=== PATIENT | female | born 1985 | race Caucasian/White ===

== ENCOUNTER 2018-04-10 16:17 | Emergency (ER) | payer OTHER ==
[~2018-04-10] VITALS: Ht 162.5 cm; Wt 59.0 kg
[~2018-04-10 16:17] MED LIST: AMOXIL500 MG PO; BIRTH CONTROL1 EAC1 PO; CLARITIN-D 10 M1 T24 PO; MOTRIN800 MG PO; PERCOCET 325 MG1 TA2 PO; PRENATAL1 TA1 PO; PRENATAL1 TA2 PO; ZITHROMAX Z PA250 MG PO
[2018-04-10] MEDS ORDERED: PREDNISONE50 MG PO (17:43)
[2018-04-10] MEDS ORDERED: PROVENTIL HFA6.7 GM INH (17:43)
== END 2018-04-10 17:48 | disposition home or self-care (01) ==
LOC: ED 16:17
DX: R07.89 Other chest pain (principal); J40 Bronchitis, not specified as acute or chronic; F17.200 Nicotine dependence, unspecified, uncomplicated; Z79.899 Other long term (current) drug therapy

== ENCOUNTER 2019-08-13 19:41 | Emergency (ER) | payer OTHER ==
[~2019-08-13] VITALS: Ht 154.9 cm; Wt 68.0 kg
[~2019-08-13 19:41] MED LIST changes: +PREDNISONE50 MG PO; +PROVENTIL HFA6.7 GM INH
[2019-08-13 20:05] LABS: BASO # 0.1 10*3/uL (0.0-0.1); BASO % 0.6 % (0.0-1.0); EOS # 0.4 10*3/uL (0.0-0.4); EOS % 3.9 % (1.0-4.0); HEMATOCRIT 40.3 % (37.0-47.0); LYMPH # 4.7 10*3/uL (1.3-4.4); MEAN CELL VOLUME 83.8 fl (81.0-99.0); MEAN CORPUSCULAR HGB CONC 32.3 g/dl (33.0-37.0); MEAN PLATELET VOLUME 10.4 fl (9.6-12.3); MONO # 0.6 10*3/uL (0.1-1.0); MONO % 6.1 % (3.0-9.0); NEUT # 4.2 10*3/uL (2.3-7.9); NEUT % 42.1 % (47.0-73.0); PLATELET COUNT AUTOMATED 282 10*3/uL (130-400); RED BLOOD COUNT 4.81 10*6/uL (4.10-5.10); RED CELL DISTRI WIDTH 13.3 % (0-14.5)
[2019-08-13 20:19] LABS: ACT PARTIAL THROMBO TIME 27.5 SECONDS (20.0-32.1); INTERNATIONAL NORM RATIO 0.9 (2.0-3.5)
[2019-08-13 20:28] LABS: ALBUMIN 4.2 gm/dl (3.1-4.5); ALKALINE PHOSPHATASE 67 U/L (45-117); BUN 17 mg/dl (7-24); CHLORIDE 105 mmol/L (98-107); CREATININE 0.95 mg/dL (0.55-1.02); POTASSIUM 3.4 mmol/L (3.5-5.1); SGOT/AST 9 IU/L (3-35); SGPT/ALT 17 U/L (12-78); SODIUM 137 mmol/L (136-145); TOTAL PROTEIN 7.7 gm/dL (6.4-8.2)
[2019-08-13 20:32] LABS: TROPONIN I < 0.015 ng/ml (<0.045)
[2019-08-13 21:20] LABS: BILIRUBIN NEGATIVE (NEGATIVE); BLOOD 1+ (NEGATIVE); CLARITY CLEAR (CLEAR); COLOR YELLOW (YELLOW); GLUCOSE NEGATIVE (NEGATIVE); KETONE NEGATIVE (NEGATIVE); LEUKO ESTERASE NEGATIVE (NEGATIVE); NITRITE NEGATIVE (NEGATIVE); SPECIFIC GRAVITY 1.015 (1.005-1.030); UROBILINOGEN 0.2 E.U./dl (0.2-1.0)
[2019-08-13 21:40] LABS: BACTERIA TRACE; EPITHELIAL CELLS 0-2; WBC 0-2 wbc/hpf (0-5)
== END 2019-08-13 21:34 | disposition left against medical advice (07) ==
LOC: ED 19:41
PROVIDERS: Emergency Medicine; Physician Assistant
DX: R07.89 Other chest pain (principal); M79.621 Pain in right upper arm; R94.31 Abnormal electrocardiogram [ECG] [EKG]; F17.200 Nicotine dependence, unspecified, uncomplicated; Z79.2 Long term (current) use of antibiotics; Z79.899 Other long term (current) drug therapy

== ENCOUNTER 2019-08-14 08:27 | Emergency (ER) | payer OTHER ==
[~2019-08-14] VITALS: Ht 154.9 cm; Wt 68.0 kg
--- NOTE | ~2019-08-14 | EKG ---
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
--- NOTE | ~2019-08-14 | EKG ---
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
--- NOTE | ~2019-08-14 | EKG ---
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
[2019-08-14 08:50] LABS: BASO % 0.3 % (0.0-1.0); EOS % 0.2 % (1.0-4.0); HEMATOCRIT 42.8 % (37.0-47.0); LYMPH # 1.3 10*3/uL (1.3-4.4); LYMPH % 10.5 % (27.0-41.0); MEAN CELL VOLUME 82.3 fl (81.0-99.0); MEAN CORPUSCULAR HGB 26.9 pg (27.0-31.0); MEAN CORPUSCULAR HGB CONC 32.7 g/dl (33.0-37.0); MEAN PLATELET VOLUME 10.6 fl (9.6-12.3); MONO # 0.4 10*3/uL (0.1-1.0); MONO % 2.9 % (3.0-9.0); NEUT # 10.7 10*3/uL (2.3-7.9); NEUT % 85.9 % (47.0-73.0); PLATELET COUNT AUTOMATED 313 10*3/uL (130-400); RED CELL DISTRI WIDTH 13.2 % (0-14.5); WHITE BLOOD COUNT 12.5 10*3/uL (4.8-10.8)
[2019-08-14 09:01] LABS: ACT PARTIAL THROMBO TIME 27.7 SECONDS (20.0-32.1); INTERNATIONAL NORM RATIO 0.9 (2.0-3.5)
[2019-08-14 09:06] LABS: ALBUMIN 4.3 gm/dl (3.1-4.5); ALKALINE PHOSPHATASE 64 U/L (45-117); BUN 11 mg/dl (7-24); CHLORIDE 107 mmol/L (98-107); CREATININE 0.78 mg/dL (0.55-1.02); POTASSIUM 3.5 mmol/L (3.5-5.1); SGOT/AST 15 IU/L (3-35); SGPT/ALT 15 U/L (12-78); SODIUM 136 mmol/L (136-145)
[2019-08-14 09:07] LABS: LIPASE 135 U/L (73-393)
[2019-08-14 09:13] LABS: BETA-HCG, QUANT < 1.0 mIU/mL (1-3); TROPONIN I < 0.015 ng/ml (<0.045)
== END 2019-08-14 16:15 | disposition home or self-care (01) ==
LOC: ED 08:27
PROVIDERS: Emergency Medicine
DX: R07.9 Chest pain, unspecified (principal); F17.200 Nicotine dependence, unspecified, uncomplicated; Z79.899 Other long term (current) drug therapy; Z79.2 Long term (current) use of antibiotics

== ENCOUNTER → 2019-09-14 | Outpatient (CLI) | payer OTHER | END | disposition home or self-care (01) | LOC: US 12:30 | DX: E01.0 Iodine-deficiency related diffuse (endemic) goiter (principal) ==